=== PATIENT | male | born 1980 | race Caucasian/White ===

== ENCOUNTER 2018-08-02 22:19 | Emergency (ER) | payer MEDICAID, OTHER ==
[~2018-08-02] VITALS: Ht 188 cm; Wt 69.5 kg
[2018-08-02 22:20] VITALS: BP 174/83
[2018-08-02] MEDS ORDERED: CEPHALEXIN 500 MG CAPSULE PO ONE (22:30)
[2018-08-02] MEDS ORDERED: SULFAMETH./TRIMETHOPRIM DS 800MG/160MG TABLET PO ONE (22:30)
[2018-08-02] MEDS ORDERED: CEPHALEXIN 500 MG CAPSULE ONE (22:41)
[2018-08-02] MEDS ORDERED: SULFAMETH./TRIMETHOPRIM DS 800MG/160MG TABLET ONE (22:41)
[2018-08-02] MEDS ORDERED: BACITRACIN ZINC OINT 500U/GM, 0.9 GM ONE (22:52)
== END 2018-08-02 22:59 | disposition left against medical advice (07) ==
LOC: ED 22:53
DX: L03.011 Cellulitis of right finger (principal); M65.141 Other infective (teno)synovitis, right hand
CPT/HCPCS: 99283

== ENCOUNTER 2018-08-03 00:39 | Inpatient (IN) | payer MEDICAID ==
[~2018-08-03] VITALS: Ht 188 cm; Wt 70.7 kg
[2018-08-03] MEDS ORDERED: AMPICILLIN/SULBACTAM 1,500 MG in SODIUM CHLORIDE 0.9% 50 ML IV STA (01:37)
[2018-08-03 01:56] LABS: BASOPHILS # (AUTO) 0.06 x10^3/uL (0-0.1); BASOPHILS % (AUTO) 1 % (0-1); EOSINOPHILS # (AUTO) 0.16 x10^3/uL (0-0.4); EOSINOPHILS % (AUTO) 1 % (1-7); LYMPHOCYTES # (AUTO) 2.32 x10^3/uL (1-3.4); LYMPHOCYTES % (AUTO) 21 % (22-44); MD NO; MEAN CORPUSCULAR HGB CONC 33.8 g/dL (33.2-36.2); MEAN CORPUSCULAR VOLUME 88.7 fL (81-97); MEAN PLATELET VOLUME 7.7 fL (7.4-10.4); MONOCYTES # (AUTO) 1.04 x10^3/uL (0.2-0.8); MONOCYTES % (AUTO) 9 % (2-9); NEUTROPHILS # (AUTO) 7.57 x10^3/uL (1.8-6.8); NEUTROPHILS % (AUTO) 68 % (42-75); PLATELET COUNT 249 x10^3/uL (130-400); RED BLOOD COUNT 4.75 x10^6/uL (4.38-5.82); RED CELL DISTRIBUTION WIDTH 12.7 % (9.4-14.8)
[2018-08-03] MEDS ORDERED: VANCOMYCIN 1,400 MG in SODIUM CHLORIDE 0.9% 250 ML IV ONE (02:00)
[2018-08-03] MEDS ORDERED: VANCOMYCIN PER PHARMACY MC ONE (02:00)
[2018-08-03] MEDS ORDERED: PHARMACOKINETIC CONSULTATION MC ONE (02:00)
[2018-08-03 02:08] LABS: ANION GAP 7 mmol/L (5-15); CHLORIDE 108 mmol/L (98-107); CREATININE 1.03 mg/dL (0.7-1.3)
[2018-08-03] MEDS ORDERED: SODIUM CHLORIDE 0.9% 1,000 ML IV ONE (02:29)
[2018-08-03] MEDS ORDERED: ONDANSETRON 2MG/ML, 2ML IVPush PRN ×2 (02:30→03:00)
[2018-08-03] MEDS ORDERED: MORPHINE SULFATE 4 MG/ML, 1ML IVPush PRN (02:30)
[2018-08-03] MEDS ORDERED: AMPICILLIN/SULBACTAM 3 GM in SODIUM CHLORIDE 0.9% 100 ML IV ONE (02:30)
[2018-08-03] MEDS ORDERED: SODIUM CHLORIDE 0.9% 1,000 ML IV SCH (02:40)
[2018-08-03] MEDS ORDERED: MORPHINE SULFATE 4 MG/ML, 1ML ONE ×2 (02:53→14:59)
[2018-08-03] MEDS ORDERED: ACETAMINOPHEN 325 MG TABLET PO PRN ×2 (03:00→14:30)
[2018-08-03] MEDS ORDERED: OXYcodone IR 5MG TABLET PO PRN (03:00)
[2018-08-03] MEDS ORDERED: LABETALOL 5MG/ML, 20ML IVPush PRN (03:00)
[2018-08-03] MEDS ORDERED: PROMETHAZINE 25 MG/ML, 1ML IM PRN ×2 (03:00→16:00)
[2018-08-03] MEDS ORDERED: POLYETHYLENE GLYCOL 17 GM PACKET PO PRN (03:00)
[2018-08-03] MEDS ORDERED: BISACODYL 10 MG SUPP PR PRN (03:00)
[2018-08-03] MEDS ORDERED: hydrALAzine 20 MG/ML, 1ML IVPush PRN (03:00)
[2018-08-03] MEDS ORDERED: morphine SULFATE 10 MG/ML, 1ML IVPush PRN (03:00)
[2018-08-03] MEDS ORDERED: VANCOMYCIN PER PHARMACY MC PRN (03:00)
[2018-08-03] MEDS ORDERED: ONDANSETRON ODT 4 MG PO PRN (03:00)
[2018-08-03 03:35] LABS: HEMOGLOBIN A1C 5.8 % (4.2-6.3)
[2018-08-03 03:36] LABS: FREE T4 (FREE THYROXINE) 0.89 ng/dL (0.76-1.46); THYROID STIMULATING HORMONE 2.37 mIU/L (0.358-3.740)
[2018-08-03 04:19] LABS: HCT (SEDRATE) 42.2 % (39.2-51.8)
[2018-08-03] MEDS: NICOTINE 7 MG/24 HR PATCH.TD24 TD SCH (04:19)
[2018-08-03 04:29] VITALS: BP 151/82
[2018-08-03] MEDS ORDERED: PHARMACOKINETIC MONITORING MC PRN (04:30)
[2018-08-03 07:58] VITALS: BP 144/78
[2018-08-03] MEDS: SENNA/DOCUSATE TABLET PO SCH (09:00)
[2018-08-03] MEDS: AMPICILLIN/SULBACTAM 3 GM in SODIUM CHLORIDE 0.9% 100 ML IV SCH ×3 (09:19→20:18)
[2018-08-03] MEDS ORDERED: FENTANYL PF 100 MCG/2ML ONE ×2 (13:27→14:38)
[2018-08-03] MEDS ORDERED: MIDAZOLAM 1 MG/ML, 2ML ONE (13:27)
[2018-08-03] MEDS ORDERED: PROPOFOL 10 MG/ML, 20ML ONE (13:31)
[2018-08-03] MEDS ORDERED: LIDOCAINE-MPF 2% ,5ML ONE (13:31)
[2018-08-03] MEDS ORDERED: CEFAZOLIN 1,000 MG ONE ×2 (13:33)
[2018-08-03] MEDS ORDERED: WATER-INJECTION,STERILE 10 ML IV ONE (13:33)
[2018-08-03] MEDS ORDERED: ONDANSETRON 2MG/ML, 2ML ONE ×2 (14:11)
[2018-08-03] MEDS ORDERED: HALOPERIDOL 5 MG/ML IV PRN (14:30)
[2018-08-03] MEDS ORDERED: hydrALAzine 20 MG/ML, 1ML IV PRN (14:30)
[2018-08-03] MEDS ORDERED: HYDROmorphone 1 MG/ML, 1ML IV PRN (14:30)
[2018-08-03] MEDS ORDERED: MEPERIDINE/PF 25MG/0.5ML IVPush PRN (14:30)
[2018-08-03] MEDS ORDERED: LABETALOL 5MG/ML, 20ML IV PRN (14:30)
[2018-08-03] MEDS ORDERED: PROMETHAZINE 25 MG/ML, 1ML IV PRN (14:30)
[2018-08-03] MEDS ORDERED: OXYcodone 5 MG/5 ML ORAL.SOL UDC PO PRN (14:30)
[2018-08-03] MEDS ORDERED: OXYcodone 5 MG/5 ML ORAL.SOL UDC ONE (14:38)
[2018-08-03] MEDS ORDERED: ACETAMINOPHEN 650 MG/20.3 ML UDC ONE (14:38)
[2018-08-03] MEDS: FENTANYL PF 100 MCG/2ML IV PRN ×2 (14:46→14:57)
[2018-08-03 16:00] VITALS: BP 141/48
[2018-08-03] MEDS ORDERED: ONDANSETRON 2MG/ML, 2ML IV PRN (16:00)
[2018-08-03] MEDS ORDERED: DIPHENHYDRAMINE 25 MG CAPSULE PO PRN (16:00)
[2018-08-03] MEDS ORDERED: HYDROcodone/APAP 5/325 TABLET PO PRN (16:00)
[2018-08-03] MEDS ORDERED: morphine SULFATE 10 MG/ML, 1ML IV PRN (16:06)
[2018-08-03] MEDS: SODIUM CHLORIDE 0.9% 1,000 ML IV SCH ×2 (16:09→21:15)
[2018-08-03] MEDS: KETOROLAC 30 MG/1 ML IV SCH ×2 (16:11→23:48)
[2018-08-03] MEDS: VANCOMYCIN 1,400 MG in SODIUM CHLORIDE 0.9% 250 ML IV SCH (17:10)
[2018-08-03 19:57] VITALS: BP 122/78
[2018-08-04 00:30] VITALS: BP 115/66
[2018-08-04] MEDS: AMPICILLIN/SULBACTAM 3 GM in SODIUM CHLORIDE 0.9% 100 ML IV SCH ×4 (02:27→20:26)
[2018-08-04] MEDS: VANCOMYCIN 1,400 MG in SODIUM CHLORIDE 0.9% 250 ML IV SCH ×2 (03:06→15:21)
[2018-08-04] MEDS: NICOTINE 7 MG/24 HR PATCH.TD24 TD SCH (03:06)
[2018-08-04 04:42] VITALS: BP 113/74
[2018-08-04 04:42] LABS: ANION GAP 3 mmol/L (5-15); CALCIUM 7.7 mg/dL (8.5-10.1); CHLORIDE 109 mmol/L (98-107)
[2018-08-04 04:43] LABS: BASOPHILS # (AUTO) 0.01 x10^3/uL (0-0.1); BASOPHILS % (AUTO) 0 % (0-1); EOSINOPHILS # (AUTO) 0.23 x10^3/uL (0-0.4); EOSINOPHILS % (AUTO) 3 % (1-7); LYMPHOCYTES # (AUTO) 2.12 x10^3/uL (1-3.4); LYMPHOCYTES % (AUTO) 27 % (22-44); MD NO; MEAN CORPUSCULAR HEMOGLOBIN 29.9 pg (27.5-34.5); MEAN CORPUSCULAR HGB CONC 33.6 g/dL (33.2-36.2); MEAN CORPUSCULAR VOLUME 88.9 fL (81-97); MEAN PLATELET VOLUME 7.9 fL (7.4-10.4); MONOCYTES # (AUTO) 0.66 x10^3/uL (0.2-0.8); MONOCYTES % (AUTO) 8 % (2-9); NEUTROPHILS # (AUTO) 4.75 x10^3/uL (1.8-6.8); NEUTROPHILS % (AUTO) 61 % (42-75); PLATELET COUNT 216 x10^3/uL (130-400); RED BLOOD COUNT 4.37 x10^6/uL (4.38-5.82); RED CELL DISTRIBUTION WIDTH 12.9 % (9.4-14.8)
[2018-08-04 04:45] LABS: ALANINE AMINOTRANSFERASE 21 U/L (12-78); ALKALINE PHOSPHATASE 61 U/L (45-117); BILIRUBIN,TOTAL 0.3 mg/dL (0.2-1.0); CHOLESTEROL, TOTAL 116 mg/dL (140-239); CREATININE 0.82 mg/dL (0.7-1.3); HDL CHOLESTEROL (DIRECT) 32 mg/dL (40-60); TOTAL PROTEIN 6.2 g/dL (6.4-8.2); TRIGLYCERIDES 82 mg/dL (50-200); VLDL CHOLESTEROL 16 mg/dL (0-25)
[2018-08-04 04:46] LABS: CHOL/HDL RATIO 3.6; HDL CHOL % 28 % (26-37); LDL CHOLESTEROL,CALCULATED 68 mg/dL (54-169); LDL/HDL RATIO 2.1 (0.5-3.0)
[2018-08-04 06:39] VITALS: BP 116/72
[2018-08-04] MEDS: KETOROLAC 30 MG/1 ML IV SCH (08:15)
[2018-08-04] MEDS: SENNA/DOCUSATE TABLET PO SCH (08:20)
[2018-08-04 12:20] VITALS: BP 129/83
[2018-08-04 18:45] VITALS: BP 130/68
[2018-08-05] MEDS: AMPICILLIN/SULBACTAM 3 GM in SODIUM CHLORIDE 0.9% 100 ML IV SCH ×2 (02:38→08:59)
[2018-08-05] MEDS: NICOTINE 7 MG/24 HR PATCH.TD24 TD SCH (03:16)
[2018-08-05] MEDS: VANCOMYCIN 1,400 MG in SODIUM CHLORIDE 0.9% 250 ML IV SCH (03:16)
[2018-08-05 03:30] VITALS: BP 127/74
[2018-08-05] MEDS: SENNA/DOCUSATE TABLET PO SCH (08:59)
[2018-08-05 09:29] VITALS: BP 146/70
[2018-08-05] MEDS ORDERED: CLIN300C8 PO ×2 (11:48→11:50)
[2018-08-05] MEDS ORDERED: ACET325T14 PO ×2 (11:48→11:50)
[2018-08-05] MEDS ORDERED: CELE200C PO ×2 (11:48)
[2018-08-05] MEDS ORDERED: LACT1CAP24 PO ×2 (11:48→11:50)
[2018-08-05 12:44] VITALS: BP 130/64
== END 2018-08-05 14:02 | disposition home or self-care (01) | DRG 514 ==
LOC: ED 01:45 → EDIP 02:29 → 4NOR 03:40
PROVIDERS: ADMIT Internal Medicine; ATTEND Internal Medicine
PROC: 0LB70ZZ Excision of Right Hand Tendon, Open Approach (ICD-10-PCS; principal; 2018-08-03 13:00)
DX: M65.141 Other infective (teno)synovitis, right hand (principal); B95.62 Methicillin resistant Staphylococcus aureus infection as the cause of diseases classified elsewhere; F15.10 Other stimulant abuse, uncomplicated; F17.210 Nicotine dependence, cigarettes, uncomplicated; Z71.6 Tobacco abuse counseling; Z71.51 Drug abuse counseling and surveillance of drug abuser
CPT/HCPCS: 36415; 80048; 80053; 80061; 82040; 83036; 83735; 84439; 84443; 85025; 85651; 86140; 87015; 87070; 87075; 87077; 87102; 87116; 87186; 87205; 87206; 96365; 96375; 99285; G0378; J0295; J0690; J1885; J2250; J2405; J2704; J3010; J3370; J3490; J2270; J7030; J7050

== ENCOUNTER 2019-08-20 14:11 | Emergency (ER) | payer SELFPAY ==
[~2019-08-20] VITALS: Ht 188 cm; Wt 73.0 kg
[~2019-08-20 14:11] MED LIST: ACET325T14 PO; CELE200C PO; CLIN300C8 PO; LACT1CAP24 PO
[2019-08-20 14:31] VITALS: BP 123/87
[2019-08-20 15:03] LABS: BASOPHILS # (AUTO) 0.06 x10^3/uL (0-0.1); BASOPHILS % (AUTO) 1 % (0-1); EOSINOPHILS # (AUTO) 0.08 x10^3/uL (0-0.4); EOSINOPHILS % (AUTO) 1 % (1-7); LYMPHOCYTES # (AUTO) 1.46 x10^3/uL (1-3.4); LYMPHOCYTES % (AUTO) 12 % (22-44); MD NO; MEAN CORPUSCULAR HEMOGLOBIN 29.1 pg (27.5-34.5); MEAN CORPUSCULAR VOLUME 88.1 fL (81-97); MEAN PLATELET VOLUME 6.8 fL (7.4-10.4); MONOCYTES # (AUTO) 0.91 x10^3/uL (0.2-0.8); MONOCYTES % (AUTO) 7 % (2-9); NEUTROPHILS # (AUTO) 9.97 x10^3/uL (1.8-6.8); NEUTROPHILS % (AUTO) 80 % (42-75); PLATELET COUNT 398 x10^3/uL (130-400); RED BLOOD COUNT 4.84 x10^6/uL (4.38-5.82); RED CELL DISTRIBUTION WIDTH 13.3 % (9.4-14.8)
--- NOTE | 2019-08-20 15:15 | NUR ---
Late Entry for 1510: No answer for lobby call at 1510 Patient potentially in [place]. to call shortly
[2019-08-20 15:27] LABS: MICROSCOPIC INDICATED
[2019-08-20 15:28] LABS: CULTURE INDICATED? YES
[2019-08-20] MEDS ORDERED: CEFTRIAXONE 1,000 MG IM ONE (16:30)
[2019-08-20] MEDS ORDERED: LIDOCAINE-MPF 1%, 2ML ONE (16:57)
[2019-08-20] MEDS ORDERED: CEFTRIAXONE 250 MG ONE (16:58)
[2019-08-20] MEDS ORDERED: OXYcodone/APAP 5/325MG TABLET ONE (16:58)
[2019-08-20] MEDS ORDERED: OXYcodone/APAP 10/325MG TABLET PO ONE (17:00)
[2019-08-20] MEDS ORDERED: KETOROLAC 30 MG/1 ML ONE (17:03)
[2019-08-20] MEDS ORDERED: CEFTRIAXONE 1,000 MG ONE (17:04)
--- NOTE | 2019-08-20 17:05 | NUR ---
MEDICATED PER EMAR
[2019-08-20] MEDS ORDERED: KETOROLAC 30 MG/1 ML IM ONE (17:30)
--- NOTE | 2019-08-20 17:30 | NUR ---
DISCHARGED HOME (WALKING) AFTER PERIOD OF ASSESSMENT POST MEDICATION PATIENT EDUCATED ON UTI PREVENTION, NEED FOR F/U WITH UROLOGY D/T INCIDENTAL FINDING
== END 2019-08-20 17:41 ==
LOC: ED 17:00
DX: N34.1 Nonspecific urethritis (principal)
CPT/HCPCS: 36415; 76870; 81001; 85025; 86592; 87086; 87491; 87591; 96372; 99284; J0696; J1885; 86780; 87077